=== PATIENT | male | born 1950 | race Caucasian/White ===

== ENCOUNTER 2023-07-06 06:04 | Emergency (ER) | payer BC, MEDICARE, SELFPAY ==
--- NOTE | 2023-07-06 06:00 | DI.RAD_ITS ---
Exam(s) XR PORTABLE CHEST AP EXAM: XR PORTABLE CHEST AP CLINICAL HISTORY: shortness of breath. TECHNIQUE: 2D digital imaging was performed. COMPARISON: No exams were available for comparison FINDINGS: Single AP portable view. Heart size is upper normal. The mediastinum is not widened. Lungs are clear. No infiltrates nor obvious pleural effusions. IMPRESSION: No acute pulmonary findings on this single AP portable view of the chest. DATA REPOSITORY: RADIATION DOSE DELIVERED:
--- NOTE | 2023-07-06 06:00 | RT.EKG_ITS ---
APPROVED REPORT Exam: Resting ECG Reason for Exam: chest pain Patient Location: E HR:99 bpm ECG Measurements Heart Rate 99 AXIS NE 159 P 47 QRSd 83 QRS 13 QT 389 T 22 QTc 499 Conclusion Sinus rhythm...normal P axis, V-rate 60- 99 Probable left atrial enlargement...P >50mS, <-0.10mV V1
[2023-07-06 06:05] VITALS: BP 172/108; PULSE 96; RESP 16; TEMP 36.9
[2023-07-06 06:12] VITALS: RESP 16
--- NOTE | 2023-07-06 06:16 | ED.GENADUL_ITS ---
Discharge Plan Disposition Patient Disposition: Against Medical Advice Condition: Serious Discharge Details Chief Complaint: AMS/LOC Clinical Impression: Hyperglycemia, Chest pain ED Provider: Johnathan Liang Discharge Instructions Instructions: Chest Pain (ED) Additional Instructions: You should follow up with your primary care provider as soon as possible if you have worsening pain, difficulty breathing or feel more ill, return to the emergency department Medical Decision Making 72 yo male who states he has a history of dm and htn comes in with complaints that he was feeling nausea and chest pain along with shortness of breath a few hours ago while at his home in [facility]. He states he moved to [facility] from [facility] approximately a month ago. HE decided to drive himself to the hospital but ended up in [place] and called 911. on arrival to the ED he states he has no symptoms now. HE is caox4 does admit to using marijuana earlier which he uses daily, denies other drugs or alcohol use. He has no fevers, chills. He is hypertensive otherwise stable vitals. He has no focal deficits, cn II -xii intact, clear lungs, no murmurs, nontender abdomen. Given his nausea/chest pain earlier will proceed with ekg/troponin, cbc, cmp, lipase and obtain d dimer. HE has no tearing back pain to suggest dissection. Given lack of deficits, nih of 0 and is oriented x4 doubt cva and do not feel head ct indicated labs show glucose over 500 and minimally elevated troponin. Pt demanding to leave, he is caox4 and has capacity to make his own decisions. I advised he could be having a serious life threatening illness such as an IN and if this is not treated early he could potentially or become disabled, he was able to understand these risks and is still choosing to leave AGAINST MEDICAL ADVISE. He was strongly encouraged to follow up with your primary care provider corey and also that he could return if he changes his mind. Differential Diagnosis Differential Diagnosis: nstemi, pe, thc use, Imaging Data Radiologic Study: Attestation: I personally reviewed and interpreted this imaging study as follows: Imaging: X-Ray Radiologist's impression: no acute findings Lab Data Lab results reviewed: Yes I reviewed the patient's lab results. ECG Data Attestation: I personally reviewed and interpreted this ECG (s) as follows: Prior ECG tracings: not available for review Interpretation: sinus rate of 99 pr 159 no stemi HPI General Mode of arrival: EMS . Date/Time Provider Initiated Documentation: 07/06/23 06:05 . Information obtained by: patient and EMS . History of Present Illness 72 year old M presents to the emergency department with the chief complaint of chest pain, described as moderate, Patient started experiencing this hour(s) (2) and it has been now resolved. No relieving factors improve symptom(s), No ex acerbating factors reported . Patient notes shortness of breath and other (nausea). Related Data Allergies Allergy/AdvReac Type Severity Reaction Status Date / Time Penicillins Allergy Unverified 07/06/23 06:17 General Stated Complaint: AMS/LOC SOFIYA: 3 Review of Systems All systems reviewed & are unremarkable except as noted in HPI and below Constitutional Constitutional: Denies chills, Denies fever(s) and Denies weakness Cardiovascular Cardiovascular: Reports chest pain and Reports dyspnea Respiratory Respiratory: Denies cough and Reports dyspnea Gastrointestinal Gastrointestinal: Denies abdominal pain and Denies vomiting Genitourinary Genitourinary: Denies dysuria Integumentary/Breasts Skin/Breast: Denies rash Neurologic Neurologic: Denies weakness Endocrine Endocrine: Denies cold intolerance and Denies heat intolerance PFSH All Active Problems (Updated 07/06/23 @ 07:12 by Johnathan Liang MD) Hyperglycemia (Acute) Chest pain (Acute) Social History Smoking/Tobacco Use Status: Former Tobacco Use Smoking risk assessment performed?: Yes Substance use type: marijuana Housing: apartment Do you feel safe at home: Yes Do you feel safe in your relationship?: Yes Exam Const General: no acute distress Orientation: alert HENMT Head: normal to inspection Ears: external ears normal General nose exam: external nose normal Mouth: moist mucous membranes Eyes General: appearance normal, both eyes and all related structures Neck Neck: normal visual inspection Resp Effort & Inspection: normal respiratory effort and able to speak in complete sentences Auscultation: clear to auscultation bilaterally Cardio Jugular venous pressure: no JVD Rate: regular rate Heart Sounds: no murmurs Skin General skin exam: no rashes or lesions noted Neuro General: patient alert and patient oriented x3 Extrem General: normal to inspection Psych Mental Status: mental status grossly normal Course Vital Signs Vital signs: Vital Signs Temperature 36.9 C 07/06/23 06:05 Pulse 96 H 07/06/23 06:05 Respiratory Rate 16 07/06/23 06:05 Blood Pressure 172/108 H 07/06/23 06:05 Temperature 36.9 C 07/06/23 06:05 Temperature Source Oral 07/06/23 06:05 Pulse 96 H 07/06/23 06:05 Respiratory Rate 16 07/06/23 06:12 Respiratory Effort Normal 07/06/23 06:12 Respiratory Depth Normal 07/06/23 06:12 Respiratory Pattern Normal 07/06/23 06:12 Blood Pressure 172/108 H 07/06/23 06:05 Pain Level 0 07/06/23 06:05
[2023-07-06 06:24] LABS: BE (Venous) 1 mmol/L (-2-3); HCO3 (Venous) 27 mmol/L (23-28); O2 Sat (Venous) 67 %; TCO2 (Venous) 24 mmol/L (24-29); pCO2 (Venous) 44 mmHg (41-51); pH (Venous) 7.39 (7.31-7.41); pO2 (Venous) 38 mmHg
[2023-07-06 06:27] LABS: Abs Immature Grans 0.07 10^3/uL (0.0-0.06); Absolute Basophil Count 0.05 10^3/uL (0.0-0.2); Absolute Eosinophil Count 0.04 10^3/uL (0.0-0.7); Absolute Lymphocyte Count 1.96 10^3/uL (1.2-3.4); Absolute Monocyte Count 0.94 10^3/uL (0.1-0.8); Absolute Neutrophil Count 9.14 10^3/uL (1.2-6.7); Basophils % 0.4; Eosinophils % 0.3; HCT 43.8 % (40.0-50.0); HGB 15.2 g/dL (13.5-17.5); Immature Grans % 0.6; Lymphocytes % 16.1; MCH 29.6 pg (27.0-33.0); MCHC 34.7 % (32.0-36.0); MCV 85 fL (80-95); MPV 9.1 fL (8.0-11.0); Monocytes % 7.7; Neutrophils % 74.9; Platelet Count 238 10^3/uL (130-400); RBC 5.13 10^6/uL (4.36-5.78); RDW 13.2 % (11.8-14.1); RDW-SD 40.9 fL
[2023-07-06 06:43] LABS: INR 0.9 (0.9-1.1); PTT Activated 24.2 sec (21.5-31.9); Prothrombin Time 9.3 sec (9.3-11.0)
[2023-07-06 06:56] LABS: ALT 51 U/L (16-63); AST 21 U/L (15-37); Albumin 4.1 g/dL (3.4-5.0); Alkaline Phosphatase 92 U/L (46-116); Anion Gap 12.6 mmol/L (3-11); BUN 35 mg/dL (7-18); CO2 27.4 mmol/L (21.0-32.0); CREATININE 1.8 mg/dL (0.70-1.30); Calcium 9.3 mg/dL (8.5-10.1); Chloride 94 mmol/L (98-107); Lipase 57 U/L (16-77); Magnesium 1.8 mg/dL (1.8-2.4); NT-proBNP 181 pg/mL (<300); Potassium 3.4 mmol/L (3.5-5.1); Sodium 134 mmol/L (136-145); TSH (W/Ref FT4) 3.84 uIU/mL (0.36-3.74); Total Protein 8.2 g/dL (6.4-8.2)
[2023-07-06 06:57] LABS: ETHANOL BLOOD < 3.0 mg/dL (<10)
--- NOTE | 2023-07-06 06:57 | DI.VRAD_ITS ---
PROCEDURE INFORMATION: Exam: XR Chest Exam date and time: 07/06/2023 6:31 AM Age: 72 years old Clinical indication: Shortness of breath; Patient HX: SOB TECHNIQUE: Imaging protocol: Radiologic exam of the chest. Views: 1 view. COMPARISON: No relevant prior studies available. FINDINGS: Lungs: Unremarkable. No consolidation. Pleural spaces: Unremarkable. No pleural effusion. No pneumothorax. Heart/Mediastinum: Unremarkable. No cardiomegaly. Bones/joints: Unremarkable. IMPRESSION: No acute findings. Dictated and Authenticated by: Vishnu Gay MD. Ordering:ANITRA Mann MD
[2023-07-06 06:58] LABS: D-Dimer 507 ng/mlFEU (<500); Glucose 514 mg/dL (74-106)
[2023-07-06 06:59] LABS: Troponin I 94 ng/L (<or=60)
[2023-07-06 07:14] LABS: FREE T4 1.16 ng/dL (0.76-1.46)
== END 2023-07-06 07:20 | disposition left against medical advice (07) ==
PROVIDERS: Emergency Provider Emergency Medicine
DX: R07.9 Chest pain, unspecified (principal); R06.02 Shortness of breath; R11.0 Nausea; R42 Dizziness and giddiness; E11.65 Type 2 diabetes mellitus with hyperglycemia; I10 Essential (primary) hypertension; R77.9 Abnormality of plasma protein, unspecified; Z53.29 Procedure and treatment not carried out because of patient's decision for other reasons
CPT/HCPCS: 36415; 80053; 82805; 83690; 93005; 99284; 71045; 80320; 83735; 83880; 84439; 84443; 84484; 85025; 85379; 85610; 85730; 93010; 99283